=== PATIENT | female | born 1975 | race Caucasian/White ===

== ENCOUNTER 2023-02-16 10:59 | Day surgery (SDC) | payer OTHER ==
[~2023-02-16 10:59] MED LIST: Lactated Ringers 1,000 ML IV SCH; Propofol 200 MG/20 ML SDV ONE; fentaNYL 100 MCG/2 ML SDV ONE
[2023-02-16] MEDS ORDERED: Propofol 200 MG/20 ML SDV ONE (12:41)
== END 2023-02-16 14:00 | disposition home or self-care (01) ==
LOC: VM.SDS 10:59
PROVIDERS: ATTEND Surgery
DX: K62.5 Hemorrhage of anus and rectum (principal); K92.1 Melena; K59.00 Constipation, unspecified; F32.A Depression, unspecified; Z98.890 Other specified postprocedural states; Z79.899 Other long term (current) drug therapy; Z88.0 Allergy status to penicillin
CPT/HCPCS: 00811; 45378; J2704; J3010; J7120

== ENCOUNTER 2024-03-08 07:51 | Emergency (ER) | payer OTHER ==
[2024-03-08] MEDS: Ondansetron 4 MG/2 ML SDV ONE (08:10)
[2024-03-08] MEDS ORDERED: Ondansetron 4 MG/2 ML SDV IVPUSH ONE (08:10)
[2024-03-08] MEDS ORDERED: Sodium Chloride 0.9% 10 ML Syringe FLUSH PRN (08:18)
[2024-03-08] MEDS: Lactated Ringers 1,000 ML IV SCH (08:30)
[2024-03-08 08:38] LABS: BASOPHILS PERCENT AUTO 0.4 % (0.2-1.2); EOSINOPHILS ABSOLUTE AUTO 0.1 x10^3/uL (0.0-0.5); EOSINOPHILS PERCENT AUTO 0.8 % (0.0-4.0); HEMOGLOBIN 15.1 g/dL (12.0-16.0); IMMATURE GRAN ABSOLUTE AUTO 0.03 x10^3/uL (0.00-0.07); LYMPHOCYTES ABSOLUTE AUTO 1.2 x10^3/uL (1.0-4.8); LYMPHOCYTES PERCENT AUTO 10.8 % (25.0-50.0); MEAN CORPUSCULAR HEMOGLOBIN 30.4 pg (26.0-32.0); MEAN CORPUSCULAR HGB CONC 33.6 g/dL (32.0-36.0); MEAN CORPUSCULAR VOLUME 90.7 fL (78.0-93.0); MONOCYTES ABSOLUTE AUTO 1.1 x10^3/uL (0.0-0.8); MONOCYTES PERCENT AUTO 9.5 % (2.0-11.0); NEUTROPHILS ABSOLUTE AUTO 8.8 x10^3/uL (1.8-7.7); NEUTROPHILS PERCENT AUTO 78.2 % (50.0-80.0); PLATELET COUNT,PLT 307 x10^3/uL (130-400); RED BLOOD CELL COUNT 4.96 x10^6/uL (4.00-5.50); WHITE BLOOD CELL COUNT,WBC 11.3 x10^3/uL (4.0-10.0)
[2024-03-08 08:59] LABS: A/G RATIO 0.72; ALANINE AMINOTRANSFERASE,ALT 32 U/L (14-59); ALBUMIN 3.3 g/dL (3.4-5.0); ALKALINE PHOSPHATASE 108 U/L (46-116); ASPARTATE AMNIOTRANSFERASE,AST 17 U/L (15-37); BILIRUBIN TOTAL 0.3 mg/dL (0.2-1.0); BLOOD UREA NITROGEN,BUN 9 mg/dL (7-18); CALCIUM 9.8 mg/dL (8.5-10.1); CARBON DIOXIDE,CO2 27 mmol/L (21-32); CHLORIDE,CL 102 mmol/L (98-107); CREATINE KINASE,CK 31 U/L (26-192); CREATININE 0.8 mg/dL (0.55-1.02); GLUCOSE RANDOM 114 mg/dL (70-99); POTASSIUM,K 3.5 mmol/L (3.5-5.1); PROTEIN TOTAL,TP 7.9 g/dL (6.4-8.2); SODIUM,NA 142 mmol/L (136-145)
[2024-03-08 09:00] LABS: ANION GAP 16.5 mmol/L (5-15)
[2024-03-08 09:01] LABS: ESTIMATED GFR 90 mL/min (>=60)
[2024-03-08] MEDS: cefTRIAXone 1 GM Vial IVPUSH ONE (09:32)
== END 2024-03-08 09:50 | disposition home or self-care (01) ==
LOC: VM.ED 07:51
DX: K52.9 Noninfective gastroenteritis and colitis, unspecified (principal); T36.8X5A Adverse effect of other systemic antibiotics, initial encounter; Z88.0 Allergy status to penicillin; Z79.2 Long term (current) use of antibiotics; Z79.51 Long term (current) use of inhaled steroids; Z79.899 Other long term (current) drug therapy
CPT/HCPCS: 36415; 74176; 80053; 82550; 85025; 87045; 87046; 87493; 96361; 96374; 99284; 99284-25; J0696; J2405; J7120